=== PATIENT | female | born 1940 | race Caucasian/White ===

== ENCOUNTER 2024-09-16 17:42 | Emergency (ER) | payer MEDICARE ==
[~2024-09-16 17:42] MED LIST: Iopamidol 370 76% 100 ML VIAL ONE
[2024-09-16] MEDS ORDERED: Ipratropium/Albuterol 3 ML NEB ONE (18:17)
[2024-09-16] MEDS ORDERED: methylPREDNISolone Sod Succ/PF 125 MG/2 ML VIAL ONE (18:17)
[2024-09-16 18:33] LABS: PTT 35.3 sec (22.9-36.1); Prothrombin Time 12.9 sec (12.0-14.7)
[2024-09-16 18:39] LABS: ALT (SGPT) 12 U/L (8-55); AST (SGOT) 23 U/L (5-34); Albumin 3.6 g/dL (3.4-4.8); Alkaline Phosphatase 64 U/L (40-110); BUN (Urea Nitrogen) 17 mg/dL (9.8-20.1); Bilirubin, Total 0.8 mg/dL (0.2-1.2); Calc. Creatinine Clearance 0 mL/min (70-130); Calcium 10.3 mg/dL (7.8-10.44); Estimated GFR 59; Globulin 2.8 g/dL (2.4-3.5); Glucose 110 mg/dL (83-110); Protein, Total 6.4 g/dL (5.8-8.1)
[2024-09-16 18:40] LABS: Troponin I 0.011 ng/mL (< 0.028)
[2024-09-16 18:43] LABS: Chloride 94 mmol/L (98-107); Potassium 3.7 mmol/L (3.5-5.1); Sodium 139 mmol/L (136-145)
[2024-09-16 19:01] LABS: Band 7 % (5-11); Eosinophils 4 % (0-10); Hematocrit 32.4 % (36.0-47.0); Hemoglobin 10.5 g/dL (12.0-16.0); Lymphocytes 15 % (21-51); MDiff Complete? YES; Mean Corpuscular HGB CONC 32.3 g/dL (32.0-36.0); Mean Corpuscular Hemoglobin 29.1 pg (27.0-31.0); Mean Corpuscular Volume 90.1 fl (78.0-98.0); Monocytes 10 % (0-10); Neutrophil 56 % (42-75); Platelet Adequacy Comment Appears Adequate; Platelet Count 134 10x3/uL (130-400); RBC Distribution Width 12.9 % (11.5-14.5); White Blood Cell (WBC) Count 5.1 10x3/uL (4.8-10.8)
[2024-09-16 19:02] LABS: Carbon Dioxide 34 mmol/L (23-31)
[2024-09-16 19:03] LABS: Anion Gap 15 mmol/L (10-20)
[2024-09-16] MEDS ORDERED: Amoxicillin/Potassium Clav 875 MG TAB ONE (20:42)
== END 2024-09-16 21:10 | disposition home or self-care (01) ==
LOC: NAV ERS 17:42
DX: R07.9 Chest pain, unspecified (principal); J44.1 Chronic obstructive pulmonary disease with (acute) exacerbation; I71.21 Aneurysm of the ascending aorta, without rupture; I11.0 Hypertensive heart disease with heart failure
CPT/HCPCS: 71045; 71275; 80053; 83605; 83880; 84484; 85025; 85610; 85730; 87428; 93005; 94640; 94760; 96374; 99285; J2919; Q9967; J7620